=== PATIENT | male | born 1995 | race Caucasian/White ===

== ENCOUNTER 2024-09-05 05:42 | Day surgery (SDC) | payer OTHER ==
[2024-09-05] VITALS (209 sets, daily range): BP systolic 85–129; BP diastolic 43–92
[~2024-09-05] VITALS: Ht 182.9 cm; Wt 92.0 kg
[2024-09-05] MEDS ORDERED: CYANOCOBALAMIN 500 MCG/TAB ( B12) PO PRN (07:30)
[2024-09-05] MEDS ORDERED: FAMOTIDINE 20 MG/TAB PO PRN (07:30)
[2024-09-05] MEDS ORDERED: cloNIDine HCL 0.1 MG/TAB PO PRN (07:30)
[2024-09-05] MEDS ORDERED: LACTATED RINGER'S 1,000 ML IV PRN ×3 (07:30→22:45)
[2024-09-05] MEDS ORDERED: diazePAM 5 MG/TAB PO PRN ×2 (07:30→08:30)
[2024-09-05] MEDS ORDERED: ALBUTEROL SULFATE 2.5 MG VIAL IN PRN (07:30)
[2024-09-05] MEDS ORDERED: PANTOPRAZOLE SODIUM Sesquihydr 40 MG/TAB PO PRN (07:30)
[2024-09-05] MEDS ORDERED: SCOPOLAMINE 1.5 MG DIS TD PRN (07:30)
[2024-09-05] MEDS ORDERED: ASCORBIC ACID 4,000 MG in SODIUM CHLORIDE 0.9% 1,000 ML IV SCH (08:00)
[2024-09-05 08:20] LABS: ALBUMIN 4.4 g/dL (3.2-5.0); BILIRUBIN, TOTAL 1.3 mg/dL (0.2-1.3); CREATININE 0.8 mg/dL (0.7-1.3); POTASSIUM 4.4 mmol/l (3.5-5.1); TOTAL PROTEIN 7.3 g/dL (6.3-8.2)
[2024-09-05 08:23] LABS: BASO% 0.3 % (0-3); EOS% 2.6 % (0-8); HEMATOCRIT 42.7 % (39.0-50.0); HEMOGLOBIN 14.3 g/dl (14.0-18.0); IMMATURE GRANULOCYTES 0.1 % (0.0-5.0); LYMPH% 21.6 % (15-41); MEAN CELL VOLUME 92.4 fL CALC (80.0-100.0); MEAN CORPUSCULAR HGB CONC 33.5 g/dL CAL (32.0-36.0); MONO% 8.1 % (2-13); NEUT# 5.08 thou/uL (1.82-7.42); NEUT% 67.3 % (42-76); RED BLOOD COUNT 4.62 mill/uL (4.70-6.10); RED CELL DISTRI WIDTH 12.3 % (11.5-15.5)
[2024-09-05] MEDS ORDERED: THIAMINE HCL 100 MG/ML 2ML VIAL IV PRN (09:10)
[2024-09-05] MEDS ORDERED: ONDANSETRON HCl 4 MG/2 ML SDV IV PRN ×3 (09:10→19:00)
[2024-09-05] MEDS ORDERED: DiphenhydrAMINE HCL 50 MG/ML SDV IV PRN (09:10)
[2024-09-05] MEDS ORDERED: diazePAM 5 MG/TAB VT PRN (09:10)
[2024-09-05] MEDS ORDERED: LIDOCAINE HCL 1% (10MG/ML) 100 MG/10 ML MDV IV PRN (09:10)
[2024-09-05] MEDS ORDERED: MIDAZOLAM HCL 2 MG/2 ML VIAL IV PRN (09:10)
[2024-09-05] MEDS ORDERED: MAGNESIUM SULFATE HEPTAHYDRATE 100 ML IV PRN (09:10)
[2024-09-05] MEDS ORDERED: POTASSIUM CHLORIDE 20 MEQ/100 ML BAG IV PRN (09:10)
[2024-09-05] MEDS ORDERED: PROPOFOL 100 ML IV PRN (09:10)
[2024-09-05] MEDS ORDERED: cloNIDine HCL 0.1 MG/TAB VT PRN (09:10)
[2024-09-05] MEDS ORDERED: NALTREXONE HCL 50 MG/TAB VT PRN (09:10)
[2024-09-05] MEDS ORDERED: SUCCINYLCHOLINE CHLORIDE 20 MG/ML 10ML VIAL IV PRN (09:10)
[2024-09-05] MEDS ORDERED: cloNIDine HYDROCHLORIDE 100 MCG/ML 10 ML INJ IV PRN (09:10)
[2024-09-05] MEDS ORDERED: ROCURONIUM BROMIDE 10 MG/ML 5ML VIAL IV PRN (09:10)
[2024-09-05] MEDS ORDERED: LIDOCAINE HCL 1% (10MG/ML) 100 MG/10 ML MDV VT PRN ×2 (09:10)
[2024-09-05] MEDS ORDERED: OCTREOTIDE ACETATE 100 MCG/VIAL SDV SC PRN (09:10)
[2024-09-05] MEDS ORDERED: PROPOFOL 10 MG/ML 100ML VIAL IV PRN (09:10)
[2024-09-05] MEDS ORDERED: STERILE WATER FOR IRRIGATION 1,000 ML BTL IR PRN (09:10)
[2024-09-05] MEDS ORDERED: NALTREXONE50 MG PO (14:24)
[2024-09-05] MEDS ORDERED: CLONIDINE0.1 MG PO (14:24)
[2024-09-05] MEDS ORDERED: KLONOPIN2 MG PO (14:25)
[2024-09-05] MEDS ORDERED: clonazePAM 1 MG/TAB PO PRN (16:35)
[2024-09-05] MEDS ORDERED: SODIUM CHLORIDE 0.9% 1,000 ML IV PRN (17:00)
[2024-09-05] MEDS ORDERED: ACETAMINOPHEN 500 MG TAB PO PRN (19:00)
[2024-09-05] MEDS ORDERED: HALOPERIDOL LACTATE 5 MG/ML SDV IV PRN ×2 (19:00→20:45)
[2024-09-05] MEDS ORDERED: ACETAMINOPHEN 1,000 MG/100 ML VIAL IV PRN (19:00)
[2024-09-05] MEDS ORDERED: LORazepam 2 MG/ML IV PRN ×2 (19:00)
[2024-09-05] MEDS ORDERED: KETOROLAC TROMETHAMINE 30 MG/ML SDV IV PRN (19:00)
[2024-09-05] MEDS ORDERED: PROMETHAZINE HCL 12.5 MG in SODIUM CHLORIDE 0.9% 50 ML IV PRN (19:00)
[2024-09-05] MEDS ORDERED: PROMETHAZINE HCL 25 MG in SODIUM CHLORIDE 0.9% 50 ML IV PRN (19:00)
[2024-09-05] MEDS ORDERED: PATIENT' OWN MED CONTROLLED 1 EA DOSE IV PRN (21:00)
[2024-09-05] MEDS ORDERED: NALTREXONE HCL 50 MG/TAB PO SCH (22:42)
[2024-09-05] MEDS ORDERED: cloNIDine HCL 0.1 MG/TAB PO SCH (23:00)
[2024-09-06 00:36] VITALS: BP 97/55
[2024-09-06] MEDS ORDERED: GABAPENTIN 300 MG/CAP PO SCH (00:45)
[2024-09-06] MEDS ORDERED: MIDAZOLAM HCL 2 MG/2 ML VIAL IV SCH (00:45)
[2024-09-06 01:13] VITALS: BP 120/69
[2024-09-06] MEDS ORDERED: cloNIDine HCL 0.1 MG/TAB PO PRN (04:00)
[2024-09-06] MEDS ORDERED: clonazePAM 1 MG/TAB PO PRN ×2 (04:00→08:00)
[2024-09-06] MEDS ORDERED: NALTREXONE HCL 50 MG/TAB PO SCH (04:00)
[2024-09-06 04:03] VITALS: BP 109/74
[2024-09-06 05:14] LABS: BASO% 0.2 % (0-3); IMMATURE GRANULOCYTES 0.3 % (0.0-5.0); LYMPH% 11.3 % (15-41); MEAN CELL VOLUME 89.8 fL CALC (80.0-100.0); MEAN CORPUSCULAR HGB 31.6 pG CALC (26.0-32.0); MEAN CORPUSCULAR HGB CONC 35.1 g/dL CAL (32.0-36.0); MONO% 2.7 % (2-13); NEUT# 5.7 thou/uL (1.82-7.42); NEUT% 85.5 % (42-76); RED BLOOD COUNT 4.12 mill/uL (4.70-6.10); RED CELL DISTRI WIDTH 12.1 % (11.5-15.5)
[2024-09-06 05:44] LABS: ALBUMIN 3.9 g/dL (3.2-5.0); BILIRUBIN, TOTAL 0.8 mg/dL (0.2-1.3); CREATININE 0.7 mg/dL (0.7-1.3); MAGNESIUM 1.8 mg/dL (1.6-2.3); TOTAL PROTEIN 6.5 g/dL (6.3-8.2)
[2024-09-06 05:48] LABS: POTASSIUM 3.4 mmol/l (3.5-5.1)
[2024-09-06] MEDS ORDERED: cloNIDine HCL 0.1 MG/TAB PO SCH (08:00)
[2024-09-06] MEDS ORDERED: ACETAMINOPHEN 325 MG/TAB PO SCH (08:00)
[2024-09-06] MEDS ORDERED: PANTOPRAZOLE SODIUM Sesquihydr 40 MG/TAB PO SCH (08:00)
[2024-09-06 08:33] VITALS: BP 119/67
[2024-09-06] MEDS ORDERED: MAGNESIUM OXIDE 400 MG/TAB PO PRN (09:00)
[2024-09-06] MEDS ORDERED: Cholecalciferol 2,000 UNIT/TAB PO PRN (09:00)
[2024-09-06] MEDS ORDERED: ACETAMINOPHEN 500 MG TAB PO PRN (09:00)
[2024-09-06] MEDS ORDERED: POTASSIUM CHLORIDE 20 MEQ/TAB PO SCH (10:00)
[2024-09-06] MEDS ORDERED: diazePAM 5 MG/TAB PO SCH (15:00)
[2024-09-06] MEDS ORDERED: HALOPERIDOL LACTATE 5 MG/ML SDV IV SCH (16:30)
== END 2024-09-06 18:02 | disposition left against medical advice (07) | DRG 894 ==
LOC: ANR 05:42 → MS2 05:43 → ANR 08:00 → MS2 16:14 → ANR 09-06 18:02
PROVIDERS: ATTEND Anesthesiology Critical Care Medicine
DX: F11.20 Opioid dependence, uncomplicated (principal)
CPT/HCPCS: J1100; J1200; J1630; J2060; J2354; J2405; J2704; J3475; J3480; J3490

== ENCOUNTER 2024-09-07 22:12 | Emergency (ER) | payer OTHER ==
[~2024-09-07] VITALS: Ht 182.9 cm; Wt 91.6 kg
[~2024-09-07 22:12] MED LIST: CLONIDINE0.1 MG PO; KLONOPIN2 MG PO; NALTREXONE50 MG PO
[2024-09-07] MEDS ORDERED: PROMETHAZINE HCL 25 MG/ML AMP IV ONE (23:05)
[2024-09-07] MEDS ORDERED: SODIUM CHLORIDE 0.9% 1,000 ML IV ONE (23:05)
[2024-09-07] MEDS ORDERED: cloNIDine HCL 0.1 MG/TAB PO ONE (23:05)
[2024-09-07] MEDS ORDERED: LORazepam 2 MG/ML IV ONE (23:15)
[2024-09-07 23:22] LABS: BASO% 0.1 % (0-3); EOS% 0.1 % (0-8); HEMATOCRIT 38.8 % (39.0-50.0); IMMATURE GRANULOCYTES 0.5 % (0.0-5.0); LYMPH% 21.4 % (15-41); MEAN CELL VOLUME 90.2 fL CALC (80.0-100.0); MEAN CORPUSCULAR HGB 30.2 pG CALC (26.0-32.0); MEAN CORPUSCULAR HGB CONC 33.5 g/dL CAL (32.0-36.0); MONO% 9.9 % (2-13); NEUT# 4.94 thou/uL (1.82-7.42); RED BLOOD COUNT 4.3 mill/uL (4.70-6.10); RED CELL DISTRI WIDTH 12.4 % (11.5-15.5)
[2024-09-07 23:36] LABS: CREATININE 0.7 mg/dL (0.7-1.3); MAGNESIUM 2.1 mg/dL (1.6-2.3); POTASSIUM 3.6 mmol/l (3.5-5.1)
[2024-09-08] MEDS ORDERED: TEMAZEPAM 15 MG/CAP PO ONE (00:20)
[2024-09-08 00:27] LABS: URINE BILIRUBIN - DIPSTICK Negative (NEGATIVE); URINE BLOOD DIPSTICK Negative (NEGATIVE); URINE GLUCOSE - DIPSTICK Negative (NEGATIVE); URINE KETONE Negative (NEGATIVE); URINE LEUK ESTERASE Negative (NEGATIVE); URINE NITRITE - DIPSTICK Negative (Negative); URINE PROTEIN - DIPSTICK Negative (NEG-TRACE); URINE SPECIFIC GRAVITY 1.015; URINE UROBILINOGEN - DIPSTICK 0.2 E.U./dL (0.2)
[2024-09-08 00:28] LABS: URINE COLOR Yellow
[2024-09-08 00:50] VITALS: BP 123/80
== END 2024-09-08 00:50 | disposition home or self-care (01) | DRG 897 ==
LOC: ED 22:12
PROVIDERS: Family Medicine
DX: F11.23 Opioid dependence with withdrawal (principal); G47.00 Insomnia, unspecified; Z72.0 Tobacco use
CPT/HCPCS: J2060; J2550